=== PATIENT | female | born 1990 | race Caucasian/White ===

== ENCOUNTER 2017-10-28 03:56 | Emergency (ER) | END 2017-10-28 08:06 | disposition home or self-care (01) ==

== ENCOUNTER 2017-10-31 14:07 | Emergency (ER) | END 2017-10-31 16:46 | disposition home or self-care (01) ==

== ENCOUNTER 2018-06-02 23:49 | Inpatient (IN) | payer OTHER ==
[~2018-06-02] VITALS: Ht 177.8 cm; Wt 96.3 kg
[~2018-06-02 23:49] MED LIST: CLIN300C10 PO; DOXY100T20 PO; HYDR-4011 PO; IBUP-1542 PO
[2018-06-03] MEDS ORDERED: ACETAMINOPHEN 325 MG TAB PO ONE (03:00)
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
[2018-06-03] MEDS ORDERED: CEFTRIAXONE 1 GM/50 ML (PMX) 50 ML IVPB ONE (05:30)
[2018-06-03] MEDS ORDERED: VANCOMYCIN 1 GM (PMX) 250 ML IVPB ONE (05:30)
[2018-06-03] MEDS ORDERED: ONDANSETRON 4 MG INJ IV PRN (06:30)
[2018-06-03] MEDS ORDERED: ACETAMINOPHEN 325 MG TAB PO PRN (06:30)
[2018-06-03 08:00] VITALS: BP 101/59; RESP 18
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
[2018-06-03 10:39] VITALS: Ht 177.8 cm; Wt 96.3 kg
[2018-06-03] MEDS ORDERED: HYDROCODONE/APAP (5/325) TAB GTB PRN (11:00)
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
[2018-06-03] MEDS: PRENATAL VITAMIN PO SCH (12:26)
[2018-06-03 13:45] VITALS: BP 110/62; PULSE 69; RESP 20
[2018-06-03] MEDS ORDERED: HYDROCODONE/APAP (5/325) TAB PO PRN (15:00)
[2018-06-03 20:00] VITALS: BP 114/66; PULSE 77; RESP 18
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
[2018-06-04 02:00] VITALS: BP 102/59; PULSE 68; RESP 17
[2018-06-04] MEDS ORDERED: CEFTRIAXONE 1 GM/50 ML (PMX) 50 ML IVPB SCH (06:00)
[2018-06-04 07:54] VITALS: BP 117/65; PULSE 82; RESP 20
--- NOTE | 2018-06-04 08:08 | QN ---
Documentation Comment Thank you for consulting with [facility] team Patient has been admitted with some orthopaedic issues At the time of visit,patient is comfortable NO abdominal pain or Vaginal bleeding is reported VS table Gen NAD Abd soft NT ND Genitalia deferred --->Patient is discussed about the need to start care -->No acute [facility] intervention is needed at this time --->If there is any symptoms ,please let [facility] team know JEMIMA MAYORGA M.D. Jun 04, 2018 08:08
[2018-06-04] MEDS: PRENATAL VITAMIN PO SCH (08:14)
--- NOTE | 2018-06-04 09:10 | PN ---
Date/Time of Note Date/Time of Note DATE: 06/04/18 TIME: 09:07 Assessment/Plan Lines/Catheters IV [facility]from [facility] Saline Lock Assessment/Plan Assessment/Plan Right long finger laceration IVDA The wound looks better today. There are no signs of deep infection. I am comfortable with her discharging home today with oral antibiotics for 10 days. I told her to keep the finger splinted most of the time, but she can come out of it to exercise it. The wound will heal by secondary intention. She will is looking into getting a new PCP. She can follow-up with PCP as outpatient. If there are any questions, please contact me. Subjective 24 Hr Interval Summary Finger feels better. The wound was cultured last night per ID. Exam/Review of Systems Vital Signs Vitals Vital Signs Date Temp Pulse Resp B/P (MAP) Pulse Ox O2 O2 Flow FiO2 Time Delivery Rate 06/04/18 98.1 82 20 117/65 98 07:54 (82) 06/04/18 Room Air 02:00 Intake and Output 06/03/18 06/03/18 06/04/18 1515:00 23:00 07:00 IntakeIntake Total 1300 ml 1240 ml 600 ml BalanceBalance 1300 ml 1240 ml 600 ml Exam Free Text/Dictation Right long finger dressing removed. There is stable appearing 5x5mm wound over the dorsal ulnar border of the long finger. She can extend the PIP joint more freely today. She can flex the PIP joint 70 degrees. There is improved pain with palpation of the wound. No erythema. Mild swelling. Fibrinous exudate at the base. Sensation intact in the finger and brisk capillary refill. Results Result Diagram: 06/04/18 0459 06/04/18 0459 SHAHBAZ RUBIN MD Jun 04, 2018 09:10
[2018-06-04] MEDS ORDERED: CEPH-443 PO (11:22)
--- NOTE | 2018-06-04 11:26 | PDOCDIS ---
Discharge Instructions CONDITION Hub[place]2Ld Patient Condition: [id number] Stable ACTIVITY: [id number] Activity Restrictions: [id number] Slowly Increase Activity Rest between Activity Avoid heavy lifting Do not operate Machinery Do not operate Power Tool Avoid Heavy Housework [id number] Bathing Restrictions: [id number] FOLLOW UP/APPOINTMENTS Follow-up Plan FU with primary x 1 week Fu with PMD/ car blocker as recommended Call 911 or got to the nearest hospital if symptoms get worse Dw ROBERTO Mercer Jun 04, 2018 11:26
--- NOTE | 2018-06-04 11:30 | DS ---
Date/Time of Note Date/Time of Note DATE: 06/04/18 TIME: Discharge Summary Admission/Discharge Info Admit Date/Time Jun 03, 2018 at 06:17 Discharge Date/Time Jun 04, 2018 at 11:10 Patient Condition: Stable Hospital Course PATIENT LEFT AMA Home Meds Active Scripts Cephalexin* (Keflex*) 500 Mg Capsule, 500 MG PO QID for 14 Days, CAP Prov:HERB TERRAZASBIR 06/04/18 Clindamycin Hcl* (Clindamycin Hcl*) 300 Mg Capsule, 300 MG PO TID for 10 Days, CAP Prov:RUPESH BELTRAN 10/31/17 Hydrocodone/Acetaminophen ([place] 5-325 Tablet) 1 Each Tablet, 1 TAB PO Q6H PRN for PAIN, #15 TAB Prov:RUPESH BELTRAN 10/31/17 Ibuprofen* (Motrin*) 600 Mg Tab, 600 MG PO Q6, #30 TAB Prov:BENEDICT STEIN PA-C 10/28/17 Doxycycline Hyclate* (Doxycycline Hyclate*) 100 Mg Tablet., 100 MG PO BID for 10 Days, TAB Prov:BENEDICT STEIN PA-C 10/28/17 Follow-up Plan FU with primary x 1 week Fu with PMD/ sugar controller as recommended Call 911 or got to the nearest hospital if symptoms get worse Dw Dr Palm Primary Care Provider Care Physician No Primary Time spent on discharge: > 30 minutes Pending Labs Laboratory Tests Test 06/04/18 04:59 White Blood Count 7.4 10^3/ul (4.8-10.8) Red Blood Count 4.02 10^6/ul (4.20-5.40) Hemoglobin 11.8 g/dl (12.0-16.0) Hematocrit 36.3 % (37.0-47.0) Mean Corpuscular Volume 90.3 fl (82.0-101.0) Mean Corpuscular Hemoglobin 29.4 pg (29.0-33.0) Mean Corpuscular Hemoglobin Concent 32.5 g/dl (32.0-37.0) Red Cell Distribution Width 12.9 % (11.5-14.5) Platelet Count 285 10^3/UL (140-415) Mean Platelet Volume 8.9 fl (7.4-10.4) Immature Granulocytes % 0.300 % (0.001-0.429) Neutrophils % 53.8 % (39.0-77.0) Lymphocytes % 37.7 % (15.0-51.0) Monocytes % 6.3 % (0.0-11.0) Eosinophils % 1.5 % (0.0-7.0) Basophils % 0.4 % (0.0-2.0) Nucleated Red Blood Cells % 0.0 /100WBC (0.0-0.0) Immature Granulocytes # 0.020 10^3/ul (0.0-0.031) Neutrophils # 4.0 10^3/ul (1.6-7.5) Lymphocytes # 2.8 10^3/ul (0.8-2.9) Monocytes # 0.5 10^3/ul (0.3-0.9) Eosinophils # 0.1 10^3/ul (0.0-0.5) Basophils # 0.0 10^3/ul (0.0-0.1) Nucleated Red Blood Cells # 0.0 10^3/ul (0.0-0.0) Erythrocyte Sedimentation Rate 12 mm/Hr (0-20) Sodium Level 139 mmol/L (135-144) Potassium Level 4.0 mmol/L (3.5-5.1) Chloride Level 108 mmol/L (97-110) Carbon Dioxide Level 24 mmol/L (21-31) Anion Gap 7 (5-13) Blood Urea Nitrogen 11 mg/dl (7-20) Creatinine 0.57 mg/dl (0.44-1.00) Est Glomerular Filtrat Rate mL/min > 60 mL/min (>60) Glucose Level 84 mg/dl (70-220) Calcium Level 9.3 mg/dl (8.4-10.2) Hepatitis B Surface Antigen NEGATIVE (NEGATIVE) Hepatitis B Core Total Antibody NEGATIVE (NEGATIVE) Hepatitis C Antibody NEGATIVE (NEGATIVE) HIV (1&2) Antibody NEGATIVE (NEGATIVE) ROBERTO TERRAZAS Jun 04, 2018 11:30
== END 2018-06-04 11:10 | disposition left against medical advice (07) | DRG 833 ==
LOC: E/R 23:49 → 2NE 06-03 06:17
PROVIDERS: ADMIT Internal Medicine; ATTEND Internal Medicine
DX: O26.891 Other specified pregnancy related conditions, first trimester (principal); S61.212A Laceration without foreign body of right middle finger without damage to nail, initial encounter; R10.32 Left lower quadrant pain; O99.321 Drug use complicating pregnancy, first trimester; F11.10 Opioid abuse, uncomplicated; O99.331 Smoking (tobacco) complicating pregnancy, first trimester; F17.200 Nicotine dependence, unspecified, uncomplicated; Z3A.00 Weeks of gestation of pregnancy not specified; Z88.0 Allergy status to penicillin; W25.XXXA Contact with sharp glass, initial encounter
CPT/HCPCS: 76801; 76817; 80048; 80053; 81001; 81025; 84703; 85025; 85651; 86703; 86704; 86709; 86803; 87070; 87081; 87340; 93971; 96365; J0696; J3370